=== PATIENT | female | born 1995 | race Caucasian/White ===

== ENCOUNTER 2017-10-30 19:33 | Emergency (ER) | payer SELFPAY ==
[2017-10-30] MEDS ORDERED: Ibuprofen ADULT LIQ* 600 MG/30 ML UDC PO ONE (20:55)
--- NOTE | 2017-10-30 20:55 | ED ---
Throat Pain/Nasal Congestion - HPI Summary HPI Summary: 22-year-old female presents with left jaw pain for the past couple hours. History of locking of her jaw on her right side. She denies any dental pain. She denies any spreading redness. She denies any fevers. States pain is giving her headache. She states it hurts when she tries to open her mouth. She states she has not eaten anything hard. She states she is only been able to eat soft food. She has not taking anything for pain. She does have a history of trauma to the right side causing similar pain. Immunizations are up- to-date. She denies any neck stiffness. No photophobia. No history of dental abscesses. - History of Current Complaint Chief Complaint: EDGeneral Time Seen by Provider: 10/30/17 20:21 - Allergies/Home Medications Allergies/Adverse Reactions: Allergies Allergy/AdvReac Type Severity Reaction Status Date / Time No Known Allergies Allergy Verified 10/30/17 19:41 PMH/Surg Hx/FS Hx/Imm Hx Endocrine/Hematology History: Denies: Hx Anticoagulant Therapy Cardiovascular History: Denies: Hx Myocardial Infarction Infectious Disease History: No Infectious Disease History: Denies: Traveled Outside the [place] in Last 30 Days - Family History Known Family History: Positive: Hypertension - Social History Alcohol Use: Occasionally Substance Use Type: Reports: None Smoking Status (MU): Never Smoked Tobacco Review of Systems Negative: Fever Positive: Other - left side jaw pain Negative: Chest Pain Negative: Shortness Of Breath All Other Systems Reviewed And Are Negative: Yes Physical Exam Triage Information Reviewed: Yes Vital Signs On Initial Exam: Initial Vitals Temp Pulse Resp BP Pulse Ox 99.2 F 84 16 114/75 97 10/30/17 19:39 10/30/17 19:39 10/30/17 19:39 10/30/17 19:39 10/30/17 19:39 Vital Signs Reviewed: Yes Appearance: Positive: Well-Appearing Skin: Positive: Warm, Dry Head/Face: Positive: Normal Head/Face Inspection Eyes: Positive: Normal, EOMI, PARESH, Conjunctiva Clear ENT: Positive: Normal ENT inspection, Pharynx normal, TMs normal, Other - tenderness left jaw over TMJ, nontender over submandibular gland Dental: Negative: Percussion Tenderness @, Gross Decay/Caries @, Abscess @ Neck: Positive: Supple, Nontender, No Lymphadenopathy Respiratory/Lung Sounds: Positive: Clear to Auscultation, Breath Sounds Present Cardiovascular: Positive: Normal, RRR Musculoskeletal: Positive: Normal Neurological: Positive: Normal Psychiatric: Positive: Normal Diagnostics - Vital Signs Vital Signs Temp Pulse Resp BP Pulse Ox 10/30/17 19:39 99.2 F 84 16 114/75 97 - Laboratory Lab Statement: Any lab studies that have been ordered have been reviewed, and results considered in the medical decision making process. EENT Course/Dx - Course Course Of Treatment: 22-year-old female presents with left jaw pain for the past couple hours. History of locking of her jaw on her right side. She denies any dental pain. She denies any spreading redness. She denies any fevers. States pain is giving her headache. She states it hurts when she tries to open her mouth. She states she has not eaten anything hard. She states she is only been able to eat soft food. She has not taking anything for pain. She does have a history of trauma to the right side causing similar pain. Immunizations are up-to-date. She denies any neck stiffness. No photophobia. No history of dental abscesses. On exam has tenderness over tmj. full range of motion jaw. No abscess felt. will take ibuprofen and modified food. Will follow up with dentist. Patient understands agrees with plan. - Differential Diagnoses Differential Diagnoses: Dental Abscess, Dental Caries, TMJ Syndrome - Diagnoses Provider Diagnoses: Jaw pain Discharge - Sign-Out/Discharge Documenting (check all that apply): Discharge/Admit/Transfer - Discharge Plan Condition: Good Disposition: HOME Patient Education Materials: Temporomandibular Disorder (ED) Referrals: Katie Vinson PA-C [Primary Care Provider] - Additional Instructions: Take Tylenol or ibuprofen every 6 hours as needed for pain Eat soft food Avoid gum Follow up with dentist if no improvement in a week Return to ED if develop any new or worsening symptoms - Billing Disposition and Condition Condition: GOOD Disposition: HOME
[2017-10-30 21:33] VITALS: BP 119/71
== END 2017-10-30 21:32 | disposition home or self-care (01) ==
LOC: ED 19:33
DX: R68.84 Jaw pain (principal)
CPT/HCPCS: 99282; A9270-GY

== ENCOUNTER 2018-05-28 13:54 | Emergency (ER) | payer SELFPAY ==
[2018-05-28 14:11] VITALS: BP 101/58
--- NOTE | 2018-05-28 15:29 | UC ---
Skin Complaint HPI - HPI Summary HPI Summary: 22 y/o female presents to the urgent care c/o a rash in her abdomen and now spreading on her back for the past week. Pt report mild itchiness. She saw one patch appeared first in the RLQ of the abdomen and then smaller ones spread. Pt denies fever, pain, drainage, SOB, chest pain, abdominal pain, N/V/D. Pt is UTD w/ all vaccines for her age. - History of Current Complaint Chief Complaint: UCRash Time Seen by Provider: 05/28/18 15:20 Stated Complaint: RASH Hx Obtained From: Patient Hx Last Menstrual Period: 05/15/18 Onset/Duration: Gradual Onset, Lasting Weeks - 1 week, Still Present, Worse Since - today Skin Exposure Onset/Duration: Weeks Ago - 1 week ago Timing: Constant Onset Severity: Mild Current Severity: Moderate Pain Intensity: 0 Pain Scale Used: 0-10 Numeric Location: Diffuse - abdomen, back and left gluteus Character: Pruritus, Redness Aggravating Factor(s): Nothing Alleviating Factor(s): Nothing Associated Signs & Symptoms: Positive: Rash. Negative: Fever, Chills, Cough, Throat Tightening, Drainage, Tenderness - abdomen, chest, back and left gluteus Related History: Possible Reaction to: Environmental Exposure - Allergy/Home Medications Allergies/Adverse Reactions: Allergies Allergy/AdvReac Type Severity Reaction Status Date / Time No Known Allergies Allergy Verified 05/28/18 14:11 PMH/Surg Hx/FS Hx/Imm Hx Previously Healthy: Yes - Pt denies PMHX Other History Of: Negative For: Anticoagulant Therapy - Surgical History Surgical History: None Surgery Procedure, Year, and Place: denies - Family History Known Family History: Positive: Hypertension - Social History Occupation: Employed Full-time Lives: With Family Alcohol Use: Occasionally Substance Use Type: None Smoking Status (MU): Never Smoked Tobacco Review of Systems All Other Systems Reviewed And Are Negative: Yes Constitutional: Positive: Negative Skin: Positive: Rash - itchy rash in the chest, abdomen, back and left gluteus Eyes: Positive: Negative ENT: Positive: Negative Respiratory: Positive: Negative Cardiovascular: Positive: Negative Gastrointestinal: Positive: Negative Genitourinary: Positive: Negative Motor: Positive: Negative Neurovascular: Positive: Negative Musculoskeletal: Positive: Negative Neurological: Positive: Negative Psychological: Positive: Negative Is Patient Immunocompromised?: No Physical Exam - Summary Physical Exam Summary: Vital Signs Reviewed: Yes General: well appearing, well nourished female in no acute apparent pain distress, sitting comfortably on examining table Eye Exam: Normal Eyes: Positive: Conjunctiva Clear - PERRLA< EOMI, fundi grossly normal ENT: Positive: Normal ENT inspection, Hearing grossly normal, Pharynx normal, TMs normal Neck: Positive: Supple, Nontender, No Lymphadenopathy Respiratory: Positive: Chest non-tender, Lungs clear, Normal breath sounds, No respiratory distress Cardiovascular: Positive: RRR, No Murmur, Pulses Normal, Brisk Capillary Refill Abdomen Description: Positive: Nontender, No Organomegaly, Soft. Negative: CVA Tenderness (R), CVA Tenderness (L) Bowel Sounds: Positive: Present Musculoskeletal: Positive: Strength Intact, ROM Intact, No Edema Neurological: Positive: Alert, Muscle Tone Normal Psychological Exam: Normal Skin: Positive: abdomen chest , upper back w/ and erythematous eruptions with a large number of oval spots, ranging in diameter from 0.5 centimeter to 1 cm.. The individual spots form a symmetrical "Maceo tree" pattern on the back. RLQ w/ w/ typical herald patch, non tender to palpation, no drainage observed, signs of excoriation observed Triage Information Reviewed: Yes Vital Signs: Initial Vital Signs Temp 97 F 05/28/18 14:09 Pulse 70 05/28/18 14:09 Resp 16 05/28/18 14:09 BP 101/58 05/28/18 14:09 Pulse Ox 99 05/28/18 14:09 Course/Dx - Course Course Of Treatment: 22 y/o female presents to the urgent care c/o a rash in her abdomen and now spreading on her back for the past week. Pt report mild itchiness. She saw one patch appeared first in the RLQ of the abdomen and then smaller ones spread. Pt denies fever, pain, drainage, SOB, chest pain, abdominal pain, N/V/D. Pt is UTD w/ all vaccines for her age. Hx obtained. Pt w / possible Pityriasis Roccea on examination. Pt educated on rash and advised rash will resolve w/ time. Pt Rx Calamide lotion and hydrocortisone topical cream to alleviate symptoms. Advised if not improvement of rash in about 2 weeks to f/u w/ her PCP or counseling director DR Hardy for further evaluation and treatment. Pt understood and agreed w/ plan of care. - Differential Diagnoses - Skin Complaint Differential Diagnoses: Abscess, Cellulitis, Contact Dermatitis, Local Allergic Reaction, MRSA, Poison Shirley, Tinea, Urticaria, Other - Pityrisis Rosea - Diagnoses Provider Diagnosis: Pityriasis rosea, Pruritus Discharge - Sign-Out/Discharge Documenting (check all that apply): Patient Departure - d/c home All imaging exams completed and their final reports reviewed: No Studies - Discharge Plan Condition: Stable Disposition: HOME Prescriptions: Calamine/Pramoxine LOTION* [Caladryl LOTION*] 1 applic .SEE ORDER BID #1 btl diPHENhydraMINE PO* [Benadryl PO 25 MG TAB*] 25 mg PO Q6H PRN #30 tab PRN Reason: pruritus Patient Education Materials: Pityriasis rosea (ED) Referrals: [facility] [place] [facility] [place]Outside] - 1 Week Radhika Hardy [Medical Doctor] - If Needed Additional Instructions: 1-Please apply calamide lotion as directed to alleviate itchiness 2-Take Benadryl PO q6hrs prn as directed to alleviate symptoms. 3-Rash will probably take 2 weeks to completely resolve if symptoms worsen please f/u with your PCP or Dandy Tender DR Hardy for further evaluation and treatment. - Billing Disposition and Condition Condition: STABLE Disposition: Home - Attestation Statements Provider Attestation: I was available for consult. This patient was seen by the [facility]. The patient was not presented to, seen by, or examined by me. -Kate
== END 2018-05-28 15:59 | disposition home or self-care (01) ==
LOC: UCEAST 13:54
DX: L42 Pityriasis rosea (principal); L29.9 Pruritus, unspecified
CPT/HCPCS: 99212; G0463

== ENCOUNTER 2019-04-10 06:22 | Emergency (ER) | payer SELFPAY ==
[2019-04-10] MEDS ORDERED: Ketorolac INJ* 30 MG/ML 1 ML VIAL IV PUSH ONE (06:36)
[2019-04-10] MEDS ORDERED: Ondansetron INJ* 2 MG/ML VIAL IV ONE (06:36)
--- NOTE | 2019-04-10 06:44 | ED ---
GI/ HPI - HPI Summary HPI Summary: 23 year old female presents with diarrhea for the past 2 days. She states had watery diarrhea. Denies any mucous or blood in it. She states that she's had one episode of vomiting. Has been nauseous. She has generalized abdominal pain. No urinary sx. No abnormal vaginal discharge. No fevers. No sore throat. No cough. No chest pain or shortness of breath. No recent travel. Denies eatting any anything different. No one else is sick. Has no medical conditions. she did start Prozac recently. She states that she just feels very weak. She feels like her legs could give out. - History of Current Complaint Chief Complaint: EDNauseaVomitDiarrh Time Seen by Provider: 04/10/19 06:27 Stated Complaint: DIARRHEA;WEAKNESS PER PT Hx Last Menstrual Period: 05/15/18 Pain Intensity: 6 - Allergy/Home Medications Allergies/Adverse Reactions: Allergies Allergy/AdvReac Type Severity Reaction Status Date / Time No Known Allergies Allergy Verified 05/28/18 14:11 Home Medications: Home Medications FLUoxetine CAP* [PROzac CAP*] 10 mg PO DAILY 04/10/19 [History Confirmed ] PMH/Surg Hx/FS Hx/Imm Hx Endocrine/Hematology History: Denies: Hx Anticoagulant Therapy Cardiovascular History: Denies: Hx Myocardial Infarction Respiratory History: Denies: Hx Asthma - Surgical History Surgery Procedure, Year, and Place: denies - Immunization History Date of Tetanus Vaccine: utd Date of Influenza Vaccine: none Infectious Disease History: No Infectious Disease History: Denies: Traveled Outside the [place] in Last 30 Days - Family History Known Family History: Positive: Hypertension - Social History Alcohol Use: Rare Substance Use Type: Reports: None Smoking Status (MU): Never Smoked Tobacco Review of Systems Negative: Fever Negative: Chest Pain Negative: Shortness Of Breath Positive: Abdominal Pain, Vomiting, Diarrhea, Nausea All Other Systems Reviewed And Are Negative: Yes Physical Exam Triage Information Reviewed: Yes Vital Signs On Initial Exam: Initial Vitals Temp Pulse Resp BP Pulse Ox 98 F 113 18 119/88 98 04/10/19 06:24 04/10/19 06:24 04/10/19 06:24 04/10/19 06:24 04/10/19 06:24 Vital Signs Reviewed: Yes Appearance: Positive: Well-Appearing Skin: Positive: Warm, Dry Head/Face: Positive: Normal Head/Face Inspection Eyes: Positive: Normal, Conjunctiva Clear ENT: Positive: Pharynx normal Respiratory/Lung Sounds: Positive: Clear to Auscultation, Breath Sounds Present Cardiovascular: Positive: Normal, RRR Abdomen Description: Positive: Soft, Other: - mild diffuse abd tenderness Bowel Sounds: Positive: Present Musculoskeletal: Positive: Normal Neurological: Positive: Normal Psychiatric: Positive: Normal Procedures - Sedation Patient Received Moderate/Deep Sedation with Procedure: No Diagnostics - Vital Signs Vital Signs Temp Pulse Resp BP Pulse Ox 04/10/19 06:24 98 F 113 18 119/88 98 - Laboratory Result Diagrams: 04/10/19 06:45 04/10/19 06:45 Lab Statement: Any lab studies that have been ordered have been reviewed, and results considered in the medical decision making process. Re-Evaluation - Re-Evaluation First Eval Re-Evaluation Time: 07:58 Change: Improved Comment: feeling better GIGU Course/Dx - Course Course Of Treatment: 23 year old female presents with diarrhea for the past 2 days. She states had watery diarrhea. Denies any mucous or blood in it. She states that she's had one episode of vomiting. Has been nauseous. She has generalized abdominal pain. No urinary sx. No abnormal vaginal discharge. No fevers. No sore throat. No cough. No chest pain or shortness of breath. No recent travel. Denies eatting any anything different. No one else is sick. Has no medical conditions. she did start Prozac recently. She states that she just feels very weak. She feels like her legs could give out. On exam mild diffuse abdominal tenderness. wbc normal. crp normal. electrolytes normal. urine no infection. gave fluids, toradol and zofran and feeling better. vitals not orthostatic. will prescribe zofran as needed. told to drink plenty of fluids. patient understand and agrees with plan. - Diagnoses Differential Diagnoses - Female: Gastroenteritis (Viral), Gastroenteritis ( Bacterial), Urinary Tract Infection Provider Diagnoses: Abdominal pain, vomiting, and diarrhea Discharge ED - Sign-Out/Discharge Documenting (check all that apply): Patient Departure - Discharge Plan Condition: Good Disposition: HOME Prescriptions: Ondansetron ODT TAB* [Zofran 4 MG Odt TAB*] 4 mg PO Q6H PRN #16 tab.odt PRN Reason: Nausea Patient Education Materials: Gastroenteritis (ED) Referrals: [facility] [place] [facility] [place]] Additional Instructions: Can take Zofran every 6 hours as needed for nausea Drink small amounts of fluid as tolerated When able to eat follow BRAT diet: Bananas, rice, applesauce, toast Take ibuprofen or Tylenol for pain as needed every 6 hours Establish care with primary Return to ED if develop any new or worsening symptoms - Billing Disposition and Condition Condition: GOOD Disposition: Home
[2019-04-10] MEDS: NS 0.9% 1000 ML** 2,000 ML IV ONE ×2 (06:49→07:34)
[2019-04-10 06:53] LABS: ABS Lymphocytes 1.1 10^3/ul (1.0-4.8); ABS Monocytes 0.8 10^3/ul (0-0.8); ABS Neutrophils 6.9 10^3/ul (1.5-7.7); Eosinophil % 0.2 %; Hematocrit 40 % (35-47); Hemoglobin 13.8 g/dL (12.0-16.0); Mean Corpuscular HGB Conc 34 g/dL (31-36); Mean Corpuscular Hemoglobin 31 pg (27-31); Mean Corpuscular Volume 90 fL (80-97); Mean Platelet Volume 8.6 fL (7.4-10.4); Platelet Count 292 10^3/uL (150-450); Red Blood Count 4.49 10^6 /uL (3.70-4.87); Red Cell Distribution Width 13 % (10-15); White Blood Count 8.8 10^3/uL (3.5-10.8)
[2019-04-10 07:12] LABS: ALT 9 U/L (7-52); AST 19 U/L (13-39); Albumin 4.7 g/dL (3.2-5.2); Albumin/Globulin Ratio 1.6 (1-3); Alkaline Phosphatase 73 U/L (34-104); Anion Gap 8 mmol/L (2-11); BUN/Creatinine Ratio 15.1 (8-20); Blood Urea Nitrogen 13 mg/dL (6-24); C Reactive Protein < 1.00 mg/L (<8.01); CO2 Carbon Dioxide 21 mmol/L (22-32); Calcium 9.7 mg/dL (8.6-10.3); Chloride 106 mmol/L (101-111); EGFR African American 98.9 (>60); EGFR Non-African American 81.8 (>60); Globulin 2.9 g/dL (2-4); Glucose 107 mg/dL (70-100); Sodium 135 mmol/L (135-145); Total Protein 7.6 g/dL (6.4-8.9)
[2019-04-10 07:19] LABS: HCG Pregnancy < 0.60 mIU/mL
--- OUTSIDE RECORDS SUMMARY | 2019-04-10 07:28 | XMS REPORT | Summary of Care ---
:1995 Author Organization [facility] Address [address] [place] [address] Care Team Providers Name Role Phone Juan Miguel Berger Primary Care Provider Reason for Visit Reason Comments Blood Pressure Low blood pressure Breathing Problem Hard time catching breathe started a couple days ago Encounter Details Date Type Department Care Team Description 03/25/2019 Office Visit [facility] Bhaskar Shetty MD Well adult exam (Primary Dx); Practice [address] [facility] Anxiety and depression [address] [place], [place] [id number] [place] [address] [phone] Allergies Active Allergy Reactions Severity Noted Date Comments Bee Sting Respiratory Reaction 04/18/2013 documented as of this encounter (statuses as of 03/25/2019) Medications Medication Sig Dispensed Refills Start Date End Date Status EPINEPHrine (EPIPEN 1 Applicator by 1 Device 0 04/18/2013 Active 2-ANA) 0.3 MG/0.3ML Injection route Injection NEEDED (bee sting). DeviceIndications: Allergy to bee sting documented as of this encounter (statuses as of 03/25/2019) Active Problems Problem Noted Date Depression 07/27/2012 documented as of this encounter (statuses as of 03/25/2019) Resolved Problems Problem Noted Date Resolved Date Other general symptoms(780.99) 04/01/2004 09/10/2012 documented as of this encounter (statuses as of 03/25/2019) Immunizations Name Administration Dates Next Due Human Papillomavirus 04/18/2013, 11/19/2012 MENINGOCOCCAL CONJUGATE VACCINE 11/19/2012 TDAP Vaccine 11/19/2012 documented as of this encounter Social History Tobacco Use Types Packs/Day Years Used Date Never Smoker Smokeless Tobacco: Never Used Alcohol Use Drinks/Week oz/Week Comments Yes occ Sex Assigned at Date Recorded Not on file Job Start Date Occupation Industry Not on file Not on file Not on file Travel History Travel Start Travel End No recent travel history available. documented as of this encounter Last Filed Vital Signs Vital Sign Reading Time Taken Comments Blood Pressure 102/66 03/25/2019 3:22 PM EDT Pulse 76 03/25/2019 3:22 PM EDT Temperature 37.5 03/25/2019 3:22 PM C (99.5 EDT F) Respiratory Rate 22 03/25/2019 3:22 PM EDT Oxygen Saturation 99% 03/25/2019 3:22 PM EDT Inhaled Oxygen Concentration - - Weight 67.9 kg (149 lb 12.8 oz) 03/25/2019 3:22 PM EDT Height 157.5 cm (5' 2") 03/25/2019 3:22 PM EDT Body Mass Index 27.4 03/25/2019 3:22 PM EDT documented in this encounter Progress Notes Bhaskar Shetty MD - 03/25/2019 3:15 PM EDT PATIENT: Belkis Rudolph : 1995 DATE OF SERVICE: 03/25/2019 CHIEF COMPLAINT: Chief Complaint Patient presents with Blood Pressure Low blood pressure Breathing Problem Hard time catching breathe started a couple days ago Subjective HISTORY OF PRESENT ILLNESS: Belkis Rudolph is a 23-y.o. female. 23 y/o presents today with concerns related to a few occasions of low BP without symptoms (just toldat routine Appointments and when giving blood) and sensation of "can't catch my breath when talking". States that she can be talking with someone and get the sensation that she has tightness aroundher chest and difficulty finishing a sentence. Also states that she can go several days without the desire to eat and then binges for 2 days. Feels like this is a cyclic pattern for her that comes every month or two. She denies being diagnosed with any BH issues in the past but does admit to impulse behavior as an adolescent for which she still has urges but controls them because she has a job and other responsibilities. All of this is stressful and she believes that her breathing concerns may be related to stress. She denies SI/HI or past attempts as self harm. 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 She plans to go to college next semester to become a solution spec. Past Medical History: Diagnosis Date Anxiety Depression Family History Problem Relation Age of Onset Allergies Mother Thyroid Mother Psychiatry Mother panic attacks Alcohol/Drug Father Aunt Suicide - Completed Father Seizures Unknown Hypertension Unknown grandfather Cancer Unknown grandfather Diabetes Unknown grandfather Heart Disease Unknown uncle Mental Retardation Unknown uncle Suicide - Completed Other Uncle Current Outpatient Medications Medication Sig EPINEPHrine (EPIPEN 2-ANA) 0.3 MG/0.3ML Injection Device 1 Applicator by Injection route NEEDED (bee sting). No current facility-administered medications for this visit. Allergies Allergen Reactions Bee Sting Respiratory Reaction Social History Socioeconomic History Marital status: Single Spouse name: Not on file Number of children: Not on file Years of education: Not on file Highest education level: Not on file Occupational History Not on file Social Needs Financial resource strain: Not on file Food insecurity: Worry: Not on file Inability: Not on file Transportation needs: Medical: Not on file Non-medical: Not on file Tobacco Use Smoking status: Never Smoker Smokeless tobacco: Never Used Substance and Sexual Activity Alcohol use: Yes Comment: occ Drug use: No Sexual activity: Yes control/protection: Condom Lifestyle Physical activity: Days per week: Not on file Minutes per session: Not on file Stress: Not on file Relationships Social connections: Talks on phone: Not on file Gets together: Not on file Attends taoist service: Not on file Active member of club or organization: Not on file Attends meetings of clubs or organizations: Not on file Relationship status: Not on file Intimate partner violence: Fear of current or ex partner: Not on file Emotionally abused: Not on file Physically abused: Not on file Forced sexual activity: Not on file Other Topics Concern Back Care Not Asked Bike Helmet Not Asked Blood Transfusions Not Asked Caffeine Concern Not Asked Exercise Not Asked Hobby Hazards Not Asked International Travel Not Asked Service Not Asked Occupational Exposure Not Asked Seat Belt Not Asked Self-Exams Not Asked Sleep Concern Not Asked Special Diet Not Asked Stress Concern Not Asked Weight Concern Not Asked 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 HENT: Negative for congestion, ear pain, hearing loss, sinus pain and sore throat. Eyes: Negative for blurred vision, double vision and pain. Respiratory: Positive for shortness of breath. Negative for cough, hemoptysis, sputum production andwheezing. Cardiovascular: Positive for palpitations (when she has the trouble breathing when sitting). Negative for chest pain, orthopnea, claudication, leg swelling and PND. Gastrointestinal: Negative for abdominal pain, constipation, heartburn, melena, nausea and vomiting. Genitourinary: Negative for dysuria, flank pain and urgency. Musculoskeletal: Negative for myalgias and neck pain. Skin: Negative for itching and rash. Neurological: Negative for dizziness, tingling, sensory change, speech change and headaches. Endo/Heme/Allergies: Does not bruise/bleed easily. Psychiatric/Behavioral: Positive for depression. Negative for hallucinations, memory loss, substanceabuse (admits to use in the past) and suicidal ideas. The patient does not have insomnia. Objective PHYSICAL EXAM: VITALS: BP 102/66 (BP Location: Right arm, Patient Position: Sitting) | Pulse 76 | Temp 99.5 F (37.5 C) (Tympanic) | Resp 22 | Ht 5' 2" (1.575 m) | Wt 149 lb 12.8 oz (67.9 kg) | LMP 02/26/2019 (Exact Date) | SpO2 99% | BMI 27.40 kg/m Body mass index is 27.4 kg/m. Physical Exam Vitals signs and nursing note reviewed. Constitutional: General: She is not in acute distress. Appearance: She is well-developed and normal weight. She is not ill-appearing , toxic-appearing ordiaphoretic. HENT: Head: Normocephalic and atraumatic. Mouth/Throat: Mouth: Mucous membranes are moist. Pharynx: No pharyngeal swelling or oropharyngeal exudate. Eyes: Extraocular Movements: Extraocular movements intact. Pupils: Pupils are equal, round, and reactive to light. Neck: Musculoskeletal: Normal range of motion and neck supple. Cardiovascular: Rate and Rhythm: Normal rate and regular rhythm. Pulses: No decreased pulses. Heart sounds: No murmur. No friction rub. No gallop. Pulmonary: Effort: Pulmonary effort is normal. No tachypnea, bradypnea or respiratory distress. Breath sounds: Normal breath sounds. No stridor. No decreased breath sounds, wheezing, rhonchi orrales. Abdominal: General: Bowel sounds are normal. Palpations: Abdomen is soft. There is no hepatomegaly, splenomegaly or mass. Tenderness: There is no tenderness. There is no guarding. Musculoskeletal: Right lower leg: No edema. Left lower leg: No edema. Lymphadenopathy: Cervical: No cervical adenopathy. Skin: General: Skin is warm and dry. Coloration: Skin is not cyanotic. Findings: No erythema. Neurological: General: No focal deficit present. Mental Status: She is alert and oriented to person, place, and time. Cranial Nerves: No cranial nerve deficit. Motor: No weakness. Psychiatric: Mood and Affect: Mood normal. Mood is not anxious. Behavior: Behavior normal. Behavior is not agitated. ASSESSMENT / IMPRESSION: 1. Well adult exam 2. Anxiety and depression Plan 1. Well adult exam Healthy 23 y/o with normal BP--alleviated concerns regarding whether she should be worried about episodic low readings. 2. Anxiety and depression Spoke at length with the patient (20 minutes) about depression and anxiety. There could be some initial symptoms consistent with low grade avinash but certainly not classic. She does admit to hypersexuality with her partner when she is excessively eating and controlling her desire for wrecklessness. Between episodes, she is worried and stressed about the future. I will see her back next week to furtherdiscuss and focus on her BH symptoms. Will consider anti- depressant and potential counseling going forward. Pt concurs and will follow up as discussed. Author: Bhaskar Shetty MD 03/25/2019 16:53 documented in this encounter Plan of Treatment Date Type Specialty Care Team Description 04/05/2019 Office Visit Family Practice Bhaskar Shetty MD [address] [place] [address] [phone] Health Maintenance Due Date Last Done Comments PAP SMEAR 1995 HPV IMMUNIZATION SERIES (3 - 07/11/2013 04/18/2013, Female 3-dose series) 11/19/2012, 11/19/2012 CHLAMYDIA SCREENING 12/15/2016 12/16/2015 INFLUENZA VACCINE (#1) 2019 DEPRESSION SCREENING 12/03/2019 12/02/2018, 11/19/2012 MENINGOCOCCAL VACCINE IMM Completed 11/19/2012 PNEUMOCOCCAL 0-64 YRS Aged Out No longer eligible based on patient's age to complete this topic documented as of this encounter Goals Goal Patient Goal Associated Recent Patient-Stated? Author Type Problems Progress Depression Depression 7 (11/19/2012 No Juan Miguel Berger screen (PHQ-9) 9:00 AM EDT) DO Enrrique total score < 5 Note: This is an individualized treatment (depression) goal for Belkis Rudolph: Displayed above is your goal for a depression screening (PHQ-9) score that would indicate good control of your depression. Keep a regular sleep schedule Lifestyle No Juan Miguel Berger DO Note: This is an individualized lifestyle goal for Belkis Rudolph: Please maintain a regular sleep schedule. This may help with some symptoms of depression. Take all prescribed medications as directed Self-management No Juan Miguel Berger DO Note: This is an individualized self-management goal for Belkis Rudolph: Please take all prescribed medications as directed. 1. Do not skip doses. If you cannot afford your medications, talk with your doctor. 2. Use a pill reminder system such as a pill box if needed. Your pharmacist can help you with this. 3. Contact your Pharmacy 5 days before your medication runs out. If you cannot take your medications for any reasons, talk with your doctor. 4. Please bring all of your medication bottles and inhalers (or a list of all your medications/inhalers) with you to every visit. Potential barriers to meeting all of your care plan goals will continue to be addressed on an ongoing basis. documented as of this encounter Results Not on filedocumented in this encounter Visit Diagnoses Diagnosis Well adult exam - Primary Routine general medical examination at a health care facility Anxiety and depression Dysthymic disorder documented in this encounter documented as of this encounter
--- OUTSIDE RECORDS SUMMARY | 2019-04-10 07:28 | XMS REPORT | Summary of Care ---
:1995 Author Organization [facility] Address [address] [place] [address] Care Team Providers Name Role Phone Juan Miguel Berger Primary Care Provider Reason for Visit Reason Comments Follow Up pt presents for follow up with BP and SOB Encounter Details Date Type Department Care Team Description 04/05/2019 Office Visit [facility] Bhaskar Shetty MD Depression, Practice [address] [facility] unspecified depression [address] [place] [address] type (Primary Dx) [place] [address] [phone] Allergies Active Allergy Reactions Severity Noted Date Comments Bee Sting Respiratory Reaction 04/18/2013 documented as of this encounter (statuses as of 04/05/2019) Medications Medication Sig Dispensed Refills Start Date End Date Status EPINEPHrine (EPIPEN 1 Applicator by 1 Device 0 04/18/2013 Active 2-ANA) 0.3 MG/0.3ML Injection route Injection NEEDED (bee sting). DeviceIndications: Allergy to bee sting fluoxetine (PROZAC) Take 1 Cap by mouth 60 Cap 0 04/05/2019 Active 10 MG Oral DAILY. CapIndications: Depression, unspecified depression type documented as of this encounter (statuses as of 04/05/2019) Active Problems Problem Noted Date Depression 07/27/2012 documented as of this encounter (statuses as of 04/05/2019) Resolved Problems Problem Noted Date Resolved Date Other general symptoms(780.99) 04/01/2004 09/10/2012 documented as of this encounter (statuses as of 04/05/2019) Immunizations Name Administration Dates Next Due Human [...] Sign Reading Time Taken Comments Blood Pressure 88/60 04/05/2019 3:26 PM EDT Pulse 98 04/05/2019 3:26 PM EDT Temperature - - Respiratory Rate - - Oxygen Saturation 99% 04/05/2019 3:26 PM EDT Inhaled Oxygen Concentration - - Weight 67.7 kg (149 lb 4.8 oz) 04/05/2019 3:26 PM EDT Height 157.5 cm (5' 2") 04/05/2019 3:26 PM EDT Body Mass Index 27.31 04/05/2019 3:26 PM EDT documented in this encounter Progress Notes Bhaskar Shetty MD - 04/05/2019 3:15 PM EDT PATIENT: Belkis Rudolph : 1995 DATE OF SERVICE: 04/05/2019 CHIEF COMPLAINT: Chief Complaint Patient presents with Follow Up pt presents for follow up with BP and SOB Subjective HISTORY OF PRESENT ILLNESS: Belkis Rudolph is a 23-y.o. female. 23 y/o here for follow-up of her anxiety/depression symptoms. States she generally feels OK but still has times where she feels depressed and doesn't want to get out of bed. States she knows she has toget out and work and that is what keeps her active. States she still has cravings for illicit substances but hasn't indulged except for an occasional marijuana cigarette. Has has SI in the past but none lately. In addition to discussing her SOB/anxiety, we discussed her overall health maintenance. States she has never had a pap smear and is sexually active. States she and her "friend with benefit" use the "pull out" method of control. She acknowledges this is potentially risky for but is not interested in any hormonal control. Past Medical History: Diagnosis Date Anxiety Depression [...] Applicator by Injection route NEEDED (bee sting). fluoxetine (PROZAC) 10 MG Oral Cap Take 1 Cap by mouth DAILY. No current facility-administered medications for this visit. 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 Psychiatric/Behavioral: Positive for depression and substance abuse. Negative for hallucinations, memory loss and suicidal ideas. The patient is nervous/ anxious. The patient does not have insomnia. Objective PHYSICAL EXAM: VITALS: BP (!) 88/60 (BP Location: Right arm, Patient Position: Sitting) | Pulse 98 | Ht 5' 2" (1.575 m) | Wt 149 lb 4.8 oz (67.7 kg) | SpO2 99% | BMI 27.31 kg/m Body mass index is 27.31 kg/m. Physical Exam Constitutional: General: She is not in acute distress. Appearance: Normal appearance. She is normal weight. She is not ill-appearing , toxic-appearing ordiaphoretic. HENT: Head: Normocephalic and atraumatic. Neurological: General: No focal deficit present. Mental Status: She is alert and oriented to person, place, and time. Psychiatric: Attention and Perception: Attention and perception normal. She is attentive. She does not perceive auditory or visual hallucinations. Mood and Affect: Mood is depressed. Mood is not anxious or elated. Affect is not labile, blunt, flat, angry, tearful or inappropriate. Speech: Speech normal. Behavior: Behavior normal. Behavior is not agitated, slowed, withdrawn or combative. Behavior is cooperative. Thought Content: Thought content normal. Thought content is not paranoid or delusional. Thought content does not include homicidal or suicidal ideation. Thought content does not include homicidal orsuicidal plan. Cognition and Memory: Cognition normal. Cognition is not impaired. Memory is not impaired. She does not exhibit impaired recent memory or impaired remote memory. Judgment: Judgment is impulsive. Judgment is not inappropriate. ASSESSMENT / IMPRESSION: ICD-9-CM ICD-10-CM 1. Depression, unspecified depression type 311 F32.9 fluoxetine (PROZAC) 10 MG Oral Cap Plan 1. Depression, unspecified depression type Pt desires improved and more even mood. Will start with low dose PROZAC and have patient come back in one month for follow up. Will perform Pap and physical exam. She states she will do some research on control and come in for that visit with a request/potential for discussion. - fluoxetine (PROZAC) 10 MG Oral Cap; Take 1 Cap by mouth DAILY. Dispense: 60 Cap; Refill: 0 Author: Bhaskar Shetty MD 04/05/2019 16:18 documented in this encounter Plan of Treatment Date Type Specialty Care Team Description 04/22/2019 Office Visit Family Practice Bhaskar Shetty MD [address] [place] [id number] [phone] Health Maintenance Due Date Last Done Comments [...] depression. Keep a regular sleep schedule Lifestyle Juan Miguel Lee DO Note: This is an individualized lifestyle [...] filedocumented in this encounter Visit Diagnoses Diagnosis Depression, unspecified depression type - Primary documented in this encounter documented as of this encounter
[2019-04-10 08:38] VITALS: BP 102/68
[2019-04-10 09:23] LABS: Urine Appearance Turbid; Urine Bilirubin Negative (Negative); Urine Blood Negative (Negative); Urine Color Amber; Urine Glucose Negative (Negative); Urine Ketones 1+ (Negative); Urine Nitrite Negative (Negative); Urine Protein Negative (Negative); Urine Specific Gravity 1.029 (1.010-1.030); Urine Urobilinogen Negative (Negative)
== END 2019-04-10 09:15 | disposition home or self-care (01) ==
LOC: ED 06:22
DX: R19.7 Diarrhea, unspecified (principal); R10.9 Unspecified abdominal pain; R11.10 Vomiting, unspecified; Z79.899 Other long term (current) drug therapy
CPT/HCPCS: 36415; 80053; 81003; 83605; 83690; 83735; 84702; 85025; 86140; 96361; 96374; 96375; 99283; J1885; J2405

== ENCOUNTER 2019-08-16 07:08 | Emergency (ER) | payer SELFPAY ==
--- NOTE | 2019-08-16 07:26 | ED ---
Nausea/Vomiting/Diarrhea HPI - HPI Summary HPI Summary: Pt. is a 24 y.o female who presents to the ER for nausea, vomiting and diarrhea that started acutely this morning. Pt. notes that her mother had "stomach bug" last week. 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 Notes mild diffuse abd. discomfort. No past medical hx. Sxs are mild in severity. No current modifying factors. - History of Current Complaint Chief Complaint: EDNauseaVomitDiarrh Stated Complaint: NAUSEA PER PT Time Seen by Provider: 08/16/19 07:24 Hx Obtained From: Patient Hx Last Menstrual Period: 05/15/18 Pain Intensity: 0 - Allergies/Home Medications Allergies/Adverse Reactions: Allergies Allergy/AdvReac Type Severity Reaction Status Date / Time No Known Allergies Allergy Verified 05/28/18 14:11 Home Medications: Home Medications Multivitamins/Minerals TAB* [Theragran/minerals TAB*] 1 tab PO DAILY 08/16/19 [ History Confirmed 08/16/19] Ondansetron ODT TAB* [Zofran 4 MG Odt TAB*] 4 mg PO Q6H PRN #12 tab.odt [Rx] PMH/Surg Hx/FS Hx/Imm Hx Previously Healthy: Yes Endocrine/Hematology History: Denies: Hx Anticoagulant Therapy Cardiovascular History: Denies: Hx Myocardial Infarction Respiratory History: Denies: Hx Asthma - Surgical History Surgery Procedure, Year, and Place: denies - Immunization History Date of Tetanus Vaccine: utd Date of Influenza Vaccine: none Infectious Disease History: No Infectious Disease History: Denies: Traveled Outside the [place] in Last 30 Days - Family History Known Family History: Positive: Hypertension - Social History Lives: With Family Alcohol Use: Rare Substance Use Type: Reports: None Smoking Status (MU): Never Smoked Tobacco Review of Systems Constitutional: Negative Negative: Fever, Chills Eyes: Negative ENT: Negative Cardiovascular: Negative Respiratory: Negative Negative: Cough Positive: Vomiting, Diarrhea, Nausea. Negative: Abdominal Pain Skin: Negative Neurological/Mental Status: Negative All Other Systems Reviewed And Are Negative: Yes Physical Exam Triage Information Reviewed: Yes Vital Signs On Initial Exam: Initial Vitals Temp Pulse Resp BP Pulse Ox 97.8 F 93 18 121/81 97 08/16/19 07:09 08/16/19 07:09 08/16/19 07:09 08/16/19 07:09 08/16/19 07:09 Vital Signs Reviewed: Yes Appearance: Positive: Well-Appearing - Pt. lying in bed in NAD. Skin: Positive: Warm, Dry Head/Face: Positive: Normal Head/Face Inspection Eyes: Positive: Normal, EOMI ENT: Positive: Pharynx normal, TMs normal. Negative: Tonsillar swelling, Tonsillar exudate Neck: Positive: Supple Respiratory/Lung Sounds: Positive: Clear to Auscultation, Breath Sounds Present. Negative: Rales, Rhonchi, Wheezes Cardiovascular: Positive: Normal, RRR Abdomen Description: Positive: Other: - Abd. is soft with mild diffuse lower abd. pain without rebound or guarding. Neurological: Positive: Normal, CN Intact II-III Psychiatric: Positive: Affect/Mood Appropriate Procedures - Sedation Patient Received Moderate/Deep Sedation with Procedure: No Diagnostics - Vital Signs Vital Signs Temp Pulse Resp BP Pulse Ox 08/16/19 07:09 97.8 F 93 18 121/81 97 - Laboratory Lab Statement: Any lab studies that have been ordered have been reviewed, and results considered in the medical decision making process. Naus/Vom/Diarrhea Course/Dx - Course Course Of Treatment: Pt. with V/D since this am. Sick contacts. Afebrile and well appearing. Benign abd. exam. Pt. initially given PO zofran and vomited. ODT zofran given with improvement. Pt. tolerating POs in ED. Work note given. Zofran rx. Will return for uncontrollable vomiting, fever, abd. pain or if concerned. - Differential Dx/Diagnosis Differential Diagnoses - Female: Appendicitis, Gastroenteritis (Viral), Gastroenteritis (Bacterial), Vomiting, Diarrhea Provider Diagnosis: Vomiting and diarrhea Condition At Discharge: Improved Discharge ED - Sign-Out/Discharge Documenting (check all that apply): Patient Departure - Discharge Plan Condition: Improved Disposition: HOME Prescriptions: Ondansetron ODT TAB* [Zofran 4 MG Odt TAB*] 4 mg PO Q6H PRN #12 tab.odt PRN Reason: Nausea Patient Education Materials: Gastroenteritis (ED) Forms: *Work Release Referrals: [facility] [Outside] Additional Instructions: Follow up with [facility] if symptoms persist Zofran as needed for nausea Increase fluids with water and gatorade/pedialyte Return to ER for uncontrollable vomiting, fever, abdominal pain or if concerned - Billing Disposition and Condition Condition: IMPROVED Disposition: Home - Attestation Statements Provider Attestation: I was available for consultation for this patient. I did not evaluate the patient or participate in any medical decision making or disposition decisions unless I am specifically named in the chart as having consulted on the patient. If I have consulted on the patient, please see my own ED note on the patient encounter. Alma Lees MD
[2019-08-16] MEDS ORDERED: Ondansetron TAB* 4 MG PO ONE (07:39)
[2019-08-16] MEDS ORDERED: Ondansetron ODT TAB* 4 MG SL ONE (08:01)
[2019-08-16 09:32] VITALS: BP 104/70
== END 2019-08-16 09:31 | disposition home or self-care (01) ==
LOC: ED 07:08
DX: R11.2 Nausea with vomiting, unspecified (principal); R19.7 Diarrhea, unspecified; R10.84 Generalized abdominal pain
CPT/HCPCS: 99282; A9270-GY